=== PATIENT | male | born 1985 | race African-American/Black ===

== ENCOUNTER 2022-12-31 01:09 | Emergency (ER) | payer SELFPAY ==
[~2022-12-31] VITALS: Ht 167.6 cm; Wt 70.0 kg
[2022-12-31 01:22] VITALS: BP 137/93
[2022-12-31] MEDS ORDERED: CEPH500T MT (01:53)
== END 2022-12-31 02:00 ==
LOC: ER 01:09
DX: H57.89 Other specified disorders of eye and adnexa (principal)
CPT/HCPCS: 99283